=== PATIENT | male | born 1995 | race African-American/Black ===

== ENCOUNTER 2022-01-02 09:17 | Observation (INO) ==
[2022-01-02] MEDS ORDERED: FAMOTIDINE 20 MG TABLET PO ONE (10:08)
[2022-01-02] MEDS ORDERED: DIAZEPAM 5 MG TABLET PO ONE (10:08)
[2022-01-02] MEDS ORDERED: LACTATED RINGERS 1,000 ML IV SCH (10:30)
[2022-01-02] MEDS ORDERED: fentaNYL 100 MCG/2 ML VIAL ONE (12:35)
[2022-01-02] MEDS ORDERED: MIDAZOLAM 2 MG/2 ML VIAL ONE (12:35)
[2022-01-02] MEDS ORDERED: SEVOFLURANE 1 UNIT/15 MINUTE INH ONE (12:35)
[2022-01-02] MEDS ORDERED: propofoL 200 MG/20 ML VIAL IV ONE (12:35)
[2022-01-02] MEDS ORDERED: ONDANSETRON 4 MG/2 ML VIAL ONE (12:35)
[2022-01-02] MEDS ORDERED: LIDOCAINE 2% 5 ML VIAL ONE (12:35)
[2022-01-02] MEDS ORDERED: HYDROmorphone 2 MG/1 ML VIAL ONE (13:14)
[2022-01-02] MEDS ORDERED: MEPERIDINE 25 MG/1 ML VIAL IV PRN (13:44)
[2022-01-02] MEDS ORDERED: HYDROmorphone 2 MG/1 ML VIAL IV PRN ×2 (13:44→13:46)
[2022-01-02] MEDS ORDERED: PROMETHAZINE INJ 25 MG in SODIUM CHLORIDE 0.9% 50 ML IV PRN (13:44)
[2022-01-02] MEDS ORDERED: ONDANSETRON 4 MG/2 ML VIAL IV PRN ×2 (13:44→13:46)
[2022-01-02] MEDS ORDERED: diphenhydrAMINE 50 MG/1 ML VIAL IV PRN (13:44)
[2022-01-02] MEDS ORDERED: KETOROLAC 30 MG/1 ML VIAL ONE (13:45)
[2022-01-02] MEDS ORDERED: PROMETHAZINE 25 MG/1 ML VIAL IM PRN (13:46)
[2022-01-02] MEDS: KETOROLAC 15 MG/1 ML VIAL IV SCH ×2 (13:54→20:25)
[2022-01-02] MEDS: LACTATED RINGERS 1,000 ML IV SCH ×2 (13:54→18:12)
[2022-01-02] MEDS ORDERED: ACETAMINOPHEN INJ 1,000 MG/100 ML VIAL IV ONE ×2 (14:06→14:08)
[2022-01-02] MEDS: SULFAMETHOX/TRIMETHOPRIM 800-160 MG TABLET PO SCH (20:24)
[2022-01-03] MEDS: KETOROLAC 15 MG/1 ML VIAL IV SCH ×2 (01:57→08:19)
[2022-01-03] MEDS: LACTATED RINGERS 1,000 ML IV SCH (02:50)
[2022-01-03 04:35] VITALS: BP 123/60
[2022-01-03] MEDS: SULFAMETHOX/TRIMETHOPRIM 800-160 MG TABLET PO SCH (08:20)
[2022-01-03] MEDS ORDERED: ENOXAPARIN 40 MG/0.4 ML SYRINGE SUBCUT SCH (09:00)
== END 2022-01-03 14:52 | disposition home or self-care (01) ==
LOC: N.5E 09:17 → N.SDSINP 09:17 → N.OR 09:17 → N.SDSINP 09:29 → N.5E 14:35
PROVIDERS: ADMIT Surgery; ATTEND Surgery